=== PATIENT | male | born 1955 | race Caucasian/White ===

== ENCOUNTER 2022-09-18 23:29 | Emergency (ER) | payer MEDICARE, OTHER ==
--- NOTE | 2022-09-18 23:44 | ED Syncope ---
General Chief Complaint: Dizziness/Syncope Stated Complaint: SYNCOPE Source of Information: Patient Exam Limitations: No Limitations History of Present Illness Date Seen by Provider: Sep 18, 2022 Time Seen by Provider: 23:30 Initial Comments The 66-year-old male presents to the emergency department today after syncopal episode. He was going from sitting to standing to get a drink and passed out. He denies any chest pain or shortness of breath prior to passing out. He feels back to normal now. He has had syncopal episodes for about a year and a half. His primary care doctor has been doing work-up to try and find the cause. He states most the time except when he goes from lying down to sitting up but occasionally happens when he goes from sitting to standing. He never has instances where he passes out seated or when he has been up for a while. He has had echocardiograms which were reportedly negative. Allergies and Home Medications Allergies Coded Allergies: No Known Drug Allergies (Unverified , 09/18/22) Patient Home Medication List Home Medication List Reviewed: Yes Review of Systems Constitutional: dizziness, other EENTM: no symptoms reported Respiratory: no symptoms reported Cardiovascular: syncope Gastrointestinal: no symptoms reported Genitourinary: no symptoms reported Musculoskeletal: no symptoms reported Skin: no symptoms reported Psychiatric/Neurological: No Symptoms Reported Past [id number] Hx Patient Social History Tobacco Use?: Yes Use of E-Cig and/or Vaping dev: No Substance use?: No Alcohol Use?: No Family Medical History Reviewed Nursing Family Hx No Pertinent Family Hx Physical Exam Vital Signs Vital Signs - First Documented 09/18/22 23:29 Temp 36.3 Pulse 79 Resp 16 B/P (MAP) 106/52 (70) Pulse Ox 97 O2 Delivery Nasal Cannula Capillary Refill : Height, Weight, BMI Height: '" Weight: lbs. oz. kg; BMI Method: General Appearance: No Apparent Distress, WD/WN HEENT: PERRL/EOMI, Normal ENT Inspection, Pharynx Normal Neck: Full Range of Motion, Normal Inspection, Non Tender, Supple Cardiovascular: Regular Rate, Rhythm, No Edema, No Gallop, No JVD, No Murmur, Normal Peripheral Pulses Respiratory: Chest Non Tender, Lungs Clear, Normal Breath Sounds, No Accessory Muscle Use, No Respiratory Distress Gastrointestinal: Normal Bowel Sounds, No Organomegaly, No Pulsatile Mass, Non Tender, Soft Extremities: Normal Capillary Refill, Normal Inspection, Normal Range of Motion, Non Tender, No Calf Tenderness, No Pedal Edema Neurologic/Psychiatric: Alert, Oriented x3, No Motor/Sensory Deficits, Normal Mood/Affect, diver helper II-XII Norm as Tested Skin: Normal Color, Warm/Dry Lymphatic: No Adenopathy Progress/Results/Core Measures Results/Orders Lab Results Laboratory Tests Test 09/18/22 23:40 Range/Units White Blood Count 11.8 H 4.3-11.0 10^3/uL Red Blood Count 4.63 4.30-5.52 10^6/uL Hemoglobin 14.2 13.3-17.7 g/dL Hematocrit 41 40-54 % Mean Corpuscular Volume 89 80-99 fL Mean Corpuscular Hemoglobin 31 25-34 pg Mean Corpuscular Hemoglobin Concent 34 32-36 g/dL Red Cell Distribution Width 13.0 10.0-14.5 % Platelet Count 202 130-400 10^3/uL Mean Platelet Volume 10.0 9.0-12.2 fL Immature Granulocyte % (Auto) 0 % Neutrophils (%) (Auto) 71 42-75 % Lymphocytes (%) (Auto) 22 12-44 % Monocytes (%) (Auto) 6 0-12 % Eosinophils (%) (Auto) 1 0-10 % Basophils (%) (Auto) 0 0-10 % Neutrophils # (Auto) 8.4 H 1.8-7.8 10^3/uL Lymphocytes # (Auto) 2.6 1.0-4.0 10^3/uL Monocytes # (Auto) 0.7 0.0-1.0 10^3/uL Eosinophils # (Auto) 0.1 0.0-0.3 10^3/uL Basophils # (Auto) 0.0 0.0-0.1 10^3/uL Immature Granulocyte # (Auto) 0.0 0.0-0.1 10^3/uL Sodium Level 142 135-145 MMOL/L Potassium Level 3.8 3.6-5.0 MMOL/L Chloride Level 107 98-107 MMOL/L Carbon Dioxide Level 23 21-32 MMOL/L Anion Gap 12 5-14 MMOL/L Blood Urea Nitrogen 23 H 7-18 MG/DL Creatinine 1.45 H 0.60-1.30 MG/DL Estimat Glomerular Filtration Rate 53 BUN/Creatinine Ratio 16 Glucose Level 150 H 70-105 MG/DL Calcium Level 9.1 8.5-10.1 MG/DL Corrected Calcium 8.9 8.5-10.1 MG/DL Total Bilirubin 0.7 0.1-1.0 MG/DL Aspartate Amino Transf (AST/SGOT) 17 5-34 U/L Alanine Aminotransferase (ALT/SGPT) 25 0-55 U/L Alkaline Phosphatase 45 40-136 U/L Total Protein 6.6 6.4-8.2 GM/DL Albumin 4.2 3.2-4.5 GM/DL My Orders Orders - DANIELAMPARO Carley DO Ekg Tracing (09/18/22 23:39) Troponin I Perez (09/18/22 23:40) Chest 1 View, Ap/Pa Only (09/18/22 23:40) Cbc With Automated Diff (09/18/22 23:40) Comprehensive Metabolic Panel (09/18/22 23:40) Ns Iv 500 Ml (Sodium Chloride 0.9%) (09/19/22 00:07) Vital Signs/I&O 09/18/22 23:29 Temp 36.3 Pulse 79 Resp 16 B/P (MAP) 106/52 (70) Pulse Ox 97 O2 Delivery Nasal Cannula EKG : Comment Sinus rhythm at 67 bpm. First-degree AV block with a TN interval of 232. Intervals are otherwise normal. There is a right bundle branch block present. No ST or T wave abnormalities. No ectopy. No STEMI Departure Communication (Admissions) Patient is hemodynamically stable back to normal mental baseline. No brief syncopal episode but she has been having off-and-on for 1 year now. He states most frequently needs referral to be secondary to dehydration. No change in medication. He has no cardiac history. No chest pain or shortness of breath prior to passing out. EKG shows right bundle branch block but no ischemic changes. Lab work appears reassuring, unremarkable. There is no swelling in his creatinine as well as his BUN. I believe this is likely orthostasis related to mild dehydration. Given IV fluids and discharged home in stable condition and close follow-up. Impression Primary Impression: Syncope Qualified Codes: R55 - Syncope and collapse Additional Impression: Elevated serum creatinine Disposition: 01 HOME, SELF-CARE Condition: Stable Departure-Patient Inst. Patient Instructions: Syncope (Fainting) (DC) Add. Discharge Instructions: Increase your fluids. Take it easy over the next couple days. Follow-up with your primary doctor next week. Return to the emergency department for any severe concerns. All discharge instructions reviewed with patient and/or family. Voiced understanding. AMPARO SANCHEZ DO Sep 18, 2022 23:44
[2022-09-18 23:48] LABS: BASOPHILS % (AUTO) 0 % (0-10); EOSINOPHILS # (AUTO) 0.1 10^3/uL (0.0-0.3); EOSINOPHILS % (AUTO) 1 % (0-10); HEMATOCRIT 41 % (40-54); HEMOGLOBIN 14.2 g/dL (13.3-17.7); LYMPHOCYTES # (AUTO) 2.6 10^3/uL (1.0-4.0); LYMPHOCYTES % (AUTO) 22 % (12-44); MEAN CORPUSCULAR HEMOGLOBIN 31 pg (25-34); MEAN CORPUSCULAR HGB CONC 34 g/dL (32-36); MEAN CORPUSCULAR VOLUME 89 fL (80-99); MONOCYTES # (AUTO) 0.7 10^3/uL (0.0-1.0); MONOCYTES % (AUTO) 6 % (0-12); NEUTROPHILS # (AUTO) 8.4 10^3/uL (1.8-7.8); NEUTROPHILS % (AUTO) 71 % (42-75); PLATELET COUNT 202 10^3/uL (130-400); WHITE BLOOD COUNT 11.8 10^3/uL (4.3-11.0)
[2022-09-18 23:59] LABS: ALBUMIN 4.2 GM/DL (3.2-4.5); CHLORIDE 107 MMOL/L (98-107); POTASSIUM 3.8 MMOL/L (3.6-5.0); SODIUM 142 MMOL/L (135-145)
[2022-09-19] LABS: CALCIUM 9.1 MG/DL (8.5-10.1)
[2022-09-19 00:01] LABS: GLUCOSE 150 MG/DL (70-105)
[2022-09-19 00:02] LABS: TOTAL PROTEIN 6.6 GM/DL (6.4-8.2)
[2022-09-19 00:03] LABS: BILIRUBIN,TOTAL 0.7 MG/DL (0.1-1.0); CARBON DIOXIDE 23 MMOL/L (21-32)
[2022-09-19 00:05] LABS: ALKALINE PHOSPHATASE 45 U/L (40-136); CREATININE SERUM 1.45 MG/DL (0.60-1.30); GFR ESTIMATED 53
[2022-09-19 00:06] LABS: BUN/CREATININE RATIO 16
[2022-09-19] MEDS ORDERED: NS IV 500 ML 500 ML IV STA (00:07)
[2022-09-19 00:08] LABS: ALANINE AMINOTRANSFERASE 25 U/L (0-55)
[2022-09-19 00:43] VITALS: BP 116/67
--- NOTE | 2022-09-19 07:03 | Diagnostic Imaging Report ---
INDICATION: Syncope. Frontal chest obtained at 11:36 p.m. Heart and mediastinal silhouette are normal in appearance. The lungs are clear. There is no pneumothorax or pleural fluid. IMPRESSION: Negative chest. Dictated by: Dictated on workstation # [id number]
== END 2022-09-19 00:43 | disposition home or self-care (01) ==
LOC: EDUNIT# 23:29 → ER 23:30
DX: R55 Syncope and collapse (principal); R79.89 Other specified abnormal findings of blood chemistry; I45.10 Unspecified right bundle-branch block
CPT/HCPCS: 36415; 71045; 80053; 84484; 85025; 93005